=== PATIENT | female | born 1960 | race African-American/Black ===

== ENCOUNTER 2018-01-11 18:25 | Emergency (ER) | payer MEDICAID ==
[~2018-01-11] VITALS: Ht 167.6 cm; Wt 122.5 kg
[2018-01-11 18:25] VITALS: BP 152/78
[2018-01-11] MEDS ORDERED: Albuterol/Ipratropium 3ml neb HHN ONE (19:00)
[2018-01-11] MEDS ORDERED: Promethazine/DM 6.25mg/5ml ORAL ONE (19:00)
[2018-01-11] MEDS ORDERED: ALBUTEROL SULF8.5 GM INH (19:30)
[2018-01-11] MEDS ORDERED: GUAIFENESIN DM118 M1 ORAL (19:30)
[2018-01-11 19:45] VITALS: BP 161/81
[2018-01-11 20:00] VITALS: BP 161/82
--- NOTE | 2018-01-12 14:34 | Emergency Room Report ---
History of Present Illness General Chief Complaint: Flu Like Symptoms Source: Patient, EMS Present Illness HPI Patient is a 57-year-old female who presented after increased sore throat cough and congestion. Patient reports having several days with symptoms. She reports having some increased nonproductive cough She reports having prior history of bipolar disorder. She denies any prior cardiac conditions.She denies any fever. She denies any increased leg pain or swelling.She denies any exertional chest pain. Patient denies any vomiting. She denies any diarrhea. Allergies: Coded Allergies: METRONIDAZOLE (Verified Allergy, Unknown, 01/11/18) SULFAMETHOXAZOLE (Verified Allergy, Unknown, 01/11/18) TRIMETHOPRIM (Verified Allergy, Unknown, 01/11/18) Patient History Past Medical History: see triage record Nursing Documentation-[facility] Past Medical History: No History, Except For Hx Hypertension: Yes History Of Psychiatric Problem: Yes - bipolar, schizo Physical Exam Vital Signs Date Time Temp Pulse Resp B/P (MAP) Pulse Ox O2 Delivery O2 Flow Rate FiO2 01/11/18 18:21 99.1 86 14 152/78 98 Room Air 01/11/18 19:06 21 General Appearance: alert, GCS 15, obese, Chronically Ill Eyes: bilateral eye PERRL ENT: moist mucus membranes Neck: full range of motion, supple Respiratory: chest non-tender, wheezing Cardiovascular #1: normal peripheral pulses, regular rate, rhythm, no edema Gastrointestinal: normal inspection, normal bowel sounds, non tender, soft Musculoskeletal: normal inspection, back normal Neurologic: normal inspection, alert, oriented x3, responsive, 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 Patient has a benign exam and does not appear to require any further imaging or laboratory testing at this time. The patient given breathing treatment with improvement in her symptoms. The patient is advised to follow up with primary care doctor in 1-2 days. Patient is advised to return if any worsening condition or if any changes in status that are concerning. This report is dictated with [employer] lime trimmer software which may occasionally lead to discrepancies related to use of this software. Last Vital Signs Date Time Temp Pulse Resp B/P (MAP) Pulse Ox O2 Delivery O2 Flow Rate FiO2 01/11/18 20:00 98.8 01/11/18 20:00 94 20 161/82 97 Room Air 01/11/18 19:45 21 Status: improved Disposition: HOME, SELF-CARE Condition: Stable Scripts Guaifenesin/Dextromethorphan (Guaifenesin Dm Syrup) 5 Ml Syrup 1 TSP ORAL Q8H, #118 ML 0 Refills Prov: George Christensen MD 01/11/18 Albuterol Sulfate* (ALBUTEROL SULFATE MDI*) 8.5 Gm Hfa.aer.ad 2 PUFF INH Q3H, #1 INH 0 Refills Prov: George Christensen MD 01/11/18 Referrals: [facility],REFERRING (PCP) Patient Instructions: Viral Respiratory Infection George Christensen MD Jan 12, 2018 14:34
== END 2018-01-11 20:00 | disposition home or self-care (01) ==
LOC: EDBD 18:25 → EMR 19:03
DX: B34.9 Viral infection, unspecified (principal); I10 Essential (primary) hypertension; F31.9 Bipolar disorder, unspecified; F20.9 Schizophrenia, unspecified; Z88.1 Allergy status to other antibiotic agents; Z88.2 Allergy status to sulfonamides
CPT/HCPCS: 94640; 94664; 99284; J7620